=== PATIENT | female | born 1990 | race Caucasian/White ===

== ENCOUNTER 2024-06-13 03:33 | Emergency (ER) | payer OTHER ==
[2024-06-13 03:41] VITALS: BP 123/88; PULSE 102; RESP 20; TEMP 98.4; BMI 36.6
== END 2024-06-13 04:51 | disposition home or self-care (01) ==
LOC: JER 03:33
DX: S60.455A Superficial foreign body of left ring finger, initial encounter (principal); W49.04XA Ring or other jewelry causing external constriction, initial encounter
CPT/HCPCS: 99283-25